=== PATIENT | male | born 1955 | race African-American/Black ===

== ENCOUNTER → 2016-12-02 | Outpatient (CLI) | payer OTHER ==
[~2016-12-02] MED LIST: NO MEDICATIONS
--- NOTE | ~2016-12-02 | EKG ---
PATIENT: NEO MA UNIT #: [id number] Ventricular Rate: 68 BPM Atrial Rate: 68 BPM P-R Interval: 168 ms QRS Duration: 104 ms Q-T Interval: 416 ms QTC Calculation(Bezet): 442 ms P [place]: 42 degrees Calculated R [place]: 61 degrees Calculated T [place]: 54 degrees Diagnosis Line: Normal sinus rhythm Diagnosis Line: Moderate voltage criteria for LVH, may be normal Diagnosis Line: variant Diagnosis Line: Borderline ECG Diagnosis Line: No previous ECGs available Diagnosis Line: Confirmed by CHASE TORRES MD ([id number]) on Diagnosis Line: 12/03/2016 7:59:01 AM INTERPRETING MD: MELISSA REEVES
[2016-12-02 09:09] LABS: HEMATOCRIT 39.2 % (38.0-50.0); HEMOGLOBIN 13.4 gm/dL (13.0-16.0); MEAN CELL VOLUME 94.6 FL (83-96); MEAN CORPUSCULAR HEMOGLOBIN 32.2 PG (28-34); MEAN CORPUSCULAR HGB CONC 34.1 g/dL (30-36); MEAN PLATELET VOLUME 6.2 FL (6.5-11.5); RED BLOOD COUNT 4.15 X10e (3.90-5.60); RED CELL DISTRIBUTION WIDTH 14.1 % (11.0-15.5)
[2016-12-02 10:42] LABS: CALCIUM SERUM 9.3 mg/dL (8.4-10.2); CREATININE SERUM 0.7 mg/dL (0.6-1.4); GLOM FILT RATE Estimated 119.8 mL/min (>60); POTASSIUM 3.5 mmol/L (3.5-5.1)
== END | disposition home or self-care (01) ==
LOC: CAMB 08:50
PROVIDERS: Specialist
DX: Z01.818 Encounter for other preprocedural examination (principal); K40.90 Unilateral inguinal hernia, without obstruction or gangrene, not specified as recurrent
CPT/HCPCS: 36415; 80048; 85027; 93005

== ENCOUNTER → 2016-12-07 | Day surgery (SDC) | payer OTHER ==
--- NOTE | ~2016-12-07 | CO ---
Unit #: [id number] #: [id number] Patient: LEVON [place] [id number] [id number] [facility] [address]. [place], [place] [address] [id number] O MR#: [id number] NAME: LEVON MA ROOM: Age: 61 Sex: M Admission Date: 12/07/2016 : 1955 Attending Physician: Alexander Murcia M.D. Primary Care Physician: Levon Duval M.D. CONSULTATION REPORT REASON FOR EVALUATION Accelerated hypertension. HISTORY OF PRESENT ILLNESS The patient is a 61-year-old -[place] male who was actually admitted to outpatient surgery secondary to inguinal hernia repair on his right side. He underwent this procedure. Preoperatively it was noted that he did have elevated blood pressure, systolic greater than 170, and postoperatively he also had similar elevation of his blood pressure. He did receive labetalol as a total of 50 mg IV as well as Vasotec 2.5 mg IV. We were asked to evaluate him from a medical standpoint for possible medication management and/or possible admission in regard to same. Upon review and evaluation and discussion with the patient he denies any prior medical history. He states he routinely follows up with his primary care physician and has never been told in the past that he does have elevated blood pressure but on further questioning he states that he drinks alcohol on a daily basis. It seems likely that his elevation is secondary to early withdrawal as he has not consumed any alcohol over the past 24 to 36 hours. Therefore I offered him a hospital admission for appropriate detox as well as blood pressure management. He refused. He stated that he wished to go home. I therefore will give him prescription for Norvasc 10 mg on a daily basis first dose now. He is to follow up with his primary care physician. I did notify him that his increased alcohol consumption on a daily basis does define alcoholism. His was present at bedside as well as the nurse who was present at bedside. He expressed complete understanding and he is well aware of the long-term detrimental side effects of ongoing alcohol abuse. At this point in time I cannot keep him in the hospital against his own will and therefore he has elected to go home. I have discussed it with Dr. Murcia, made him aware as well. From a surgical standpoint he has been cleared and from our standpoint will give him prescription for Norvasc and he may go home. Dictated by... Perry Juarez/kaya TD: 12/07/2016 17:39 Unit #: [id number] #: [id number] Patient: LEVON MA JOB #: [id number] CONSULTATION REPORT Page 1 of 1 X Den Mercado MD X CONSULTATION REPORT
--- NOTE | ~2016-12-07 | OR ---
Unit #: [id number] #: [id number] Patient: LEVON [place] [id number] [facility] [address] [facility]. [place], [place] [address] [id number] O MR#: [id number] NAME: LEVON MA ROOM: Date of Procedure: 12/07/2016 Admission Date: 12/07/2016 Surgeon: Alexander Murcia M.D. : 1955 Attending Physician: Alexander Murcia M.D. Primary Care Physician: Levon Duval M.D. OPERATIVE REPORT PREOPERATIVE DIAGNOSIS Right inguinal hernia. POSTOPERATIVE DIAGNOSIS Indirect right inguinal hernia. PROCEDURE PERFORMED Inguinal exploration, open repair, right inguinal hernia with PerFix plug mesh. ANESTHESIA General endotracheal anesthesia. ESTIMATED BLOOD LOSS 10 mL. 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 On examination, he has a reducible right inguinal hernia. DESCRIPTION OF PROCEDURE The patient was admitted to [facility], positively identified, transported to the operating room, and after induction of general endotracheal anesthesia, he received antibiotics per SCIP protocol. His abdominal wall hair was clipped and he was prepped and draped in usual sterile fashion. A transverse incision in the skin line was performed. We dissected down through the soft tissue exposing the external oblique aponeurosis. The aponeurosis was opened in direction of its fibers to include the external ring. The cord structures were elevated from the floor of the inguinal canal. A large lipoma was and clamped, divided, and ligated. An indirect hernia sac was identified. It was from the cord structures, which were preserved and once fully freed up, up to the level of the internal ring, the hernia sac was suture ligated and excess sac excised and the stump was reduced to the peritoneal cavity. The internal ring was patched using a small PerFix plug to maintain reduction and to close the ring. It was secured with 0 Ethibond interrupted sutures. Onlay mesh was secured to the pubic tubercle, stretched across the inguinal ligament with the tails wrapped around the spermatic cord as it exited the abdominal wall. The tails were secured to the musculofascial tissues superior and lateral to the internal ring. The limbs of the mesh were secured to the rectus Unit #: [id number] #: [id number] Patient: ANIL,LEVON sheath medially and the shelving edge of inguinal ligament laterally. The cord was placed back in the anatomic position and I infiltrated 30 mL of 0.5% Marcaine with epinephrine. The skin was closed with Vicryl and sutures. The patient tolerated the procedure well. Sponges and needle counts were correct x3. The patient was transported to Recovery in stable condition. Findings and instructions were discussed with his family. Dictated by... Perry Pham/byron TD: 12/08/2016 12:00 JOB #: [id number] OPERATIVE REPORT Page 1 of 1 X Alexander Murcia MD PROCEDURE OPERATIVE NOTE
== END | disposition home or self-care (01) ==
LOC: CSUR 11:17
DX: K40.90 Unilateral inguinal hernia, without obstruction or gangrene, not specified as recurrent (principal); D17.6 Benign lipomatous neoplasm of spermatic cord; Z85.46 Personal history of malignant neoplasm of prostate; Z90.79 Acquired absence of other genital organ(s); Z98.890 Other specified postprocedural states
CPT/HCPCS: C1781; J0690; J1885; J2250; J2405; J3010